=== PATIENT | female | born 1950 | race Caucasian/White ===

== ENCOUNTER → 2018-06-10 08:58 | Outpatient (CLI) | payer MEDICARE, SELFPAY ==
[2018-06-10 09:41] LABS: Alanine Aminotransferase 27 IU/L (9-52); Albumin 4.3 g/dL (3.5-5.0); Albumin Globulin Ratio 1.5 (1.0-2.8); Alkaline Phosphatase 41 U/L (38-126); Aspartate Aminotransferase 31 IU/L (14-36); Bilirubin Total 0.6 mg/dL (0.2-1.3); Blood Urea Nitrogen 15 mg/dL (7-17); Calcium 9.4 mg/dL (8.4-10.2); Carbon Dioxide 28 mmol/L (22-32); Chloride 103 mmol/L (98-107); Estimated Glomerular Filt Rate > 60.0 mL/min (>60); Globulin 2.9 g/dL (1.7-4.1); Glucose 94 mg/dL (80-110); HEMOLYSIS < 15 (0-50); Potassium 4.3 mmol/L (3.4-5.1); Sodium 138 mmol/L (137-145); Total Protein 7.2 g/dL (6.3-8.2)
== END ==
DX: Z13.228 Encounter for screening for other metabolic disorders (principal)
CPT/HCPCS: 36415; 80053

== ENCOUNTER → 2019-06-17 08:57 | Outpatient (CLI) | payer OTHER, SELFPAY ==
[2019-06-17 10:22] LABS: Alanine Aminotransferase 18 IU/L (<35); Albumin 4.3 g/dL (3.5-5.0); Albumin Globulin Ratio 1.3 (1.0-2.8); Alkaline Phosphatase 47 U/L (38-126); Aspartate Aminotransferase 35 IU/L (14-36); BUN Creatinine Ratio 23.3 (6-22); Bilirubin Total 0.6 mg/dL (0.2-1.3); Blood Urea Nitrogen 14 mg/dL (7-17); Calcium 9.7 mg/dL (8.4-10.2); Carbon Dioxide 27 mmol/L (22-32); Chloride 102 mmol/L (98-107); Estimated Glomerular Filt Rate > 60.0 mL/min (>60); Globulin 3.3 g/dL (1.7-4.1); Glucose 94 mg/dL (80-110); HEMOLYSIS < 15 (0-50); Potassium 4.3 mmol/L (3.4-5.1); Sodium 139 mmol/L (137-145); Total Protein 7.6 g/dL (6.3-8.2)
[2019-06-17 10:40] LABS: Vitamin D 25 Hydroxy (D3) 37.3 ng/mL (30.0-100.0)
== END ==
PROVIDERS: PCP Internal Medicine
DX: Z13.228 Encounter for screening for other metabolic disorders (principal)
CPT/HCPCS: 36415; 80053; 82306

== ENCOUNTER → 2019-06-29 10:01 | Outpatient (CLI) | payer OTHER, SELFPAY ==
--- NOTE | 2019-06-29 | DI.RAD.S_ITS ---
PROCEDURE: XR HAND RT 2V INDICATIONS: PRIMARY OSTEOARTHRITIS TECHNIQUE: 3 views of the hand(s) bilaterally were acquired. COMPARISON: [facility], CR, XR HAND LT 2V, 06/29/2019, 10:04. [facility], CR, HAND 3V LEFT, 09/07/2013, 12:15. FINDINGS: Bones: No fractures or dislocations. There is mild to moderate degenerative osteoarthritic joint space narrowing best seen at the distal interphalangeal joints with the right hand. No periarticular erosions are associated. Carpal bones are normally aligned. No suspicious bony lesions. Soft tissues: No suspicious soft tissue calcifications. IMPRESSION: Mild to moderate osteoarthritis, no sign of erosive/inflammatory arthritis. No recent trauma. Dictated by: Piyush Gill M.D. on 06/29/2019 at 10:52 Approved by: Piyush Gill M.D. on 06/29/2019 at 10:53
--- NOTE | 2019-06-29 | DI.RAD.S_ITS ---
PROCEDURE: XR HAND LT 2V INDICATIONS: PRIMARY OSTEOARTHRITIS TECHNIQUE: 3 views of the left hand acquired. COMPARISON: [facility], FABY, XR HAND RT 2V, 06/29/2019, 10:02. [facility], FABY, HAND 3V LEFT, 09/07/2013, 12:15. FINDINGS: Bones: No fractures or dislocations. Carpal bones are normally aligned. No suspicious bony lesions. Soft tissues: No suspicious soft tissue calcifications. IMPRESSION: Left hand degenerative osteoarthritis at the distal phalangeal joints. No recent trauma or erosive arthritis is found. Dictated by: Piyush Gill M.D. on 06/29/2019 at 10:55 Approved by: Piyush Gill M.D. on 06/29/2019 at 10:56
== END ==
PROVIDERS: PCP Internal Medicine; Referring Provider Internal Medicine; Visit Provider Internal Medicine
DX: M19.041 Primary osteoarthritis, right hand (principal); M19.042 Primary osteoarthritis, left hand
CPT/HCPCS: 73120

== ENCOUNTER → 2019-11-09 09:38 | Outpatient (CLI) | payer OTHER, SELFPAY ==
[2019-11-11 04:08] LABS: COVID19 Sendout Not Detected (Not Detected)
== END ==
PROVIDERS: PCP Internal Medicine; Visit Provider Physician Assistant
DX: Z03.818 Encounter for observation for suspected exposure to other biological agents ruled out (principal)
CPT/HCPCS: 87635

== ENCOUNTER → 2020-09-05 19:29 | Outpatient (ROUT) | payer OTHER, SELFPAY ==
[2020-09-05 20:11] LABS: Add Manual Diff / Slide Review NO; Basophils Absolute Auto 0 /uL (0-100); Basophils Percent Auto 0.9 % (0-2); Eosinophils Absolute Auto 100 /uL (0-450); Eosinophils Percent Auto 1.1 % (2-4); Hematocrit 42.4 % (36-46); Lymphocytes Absolute Auto 1200 /uL (1100-4500); Lymphocytes Percent Auto 21.5 % (25-40); Mean Corpuscular Hemoglobin 30.3 PG (26-34); Mean Corpuscular Volume 91.7 fL (80-100); Monocytes Absolute Auto 400 /uL (0-900); Monocytes Percent Auto 7.5 % (3-14); Neutrophils Absolute Auto 3800 /uL (1500-7000); Platelet Count 206 X10^3/uL (150-400); Red Blood Cell Count 4.63 X10^6/uL (4.0-5.2); Red Cell Distribution Width 12.6 % (11.6-14.8); White Blood Cell Count 5.6 X10^3/uL (4.5-11.0)
[2020-09-05 20:19] LABS: Alanine Aminotransferase 20 IU/L (<35); Albumin 4.1 g/dL (3.5-5.0); Albumin Globulin Ratio 1.4 (1.0-2.8); Alkaline Phosphatase 47 U/L (38-126); Aspartate Aminotransferase 38 IU/L (14-36); BUN Creatinine Ratio 22.7 (6-22); Bilirubin Total 0.4 mg/dL (0.2-1.3); Blood Urea Nitrogen 15 mg/dL (7-17); C-Reactive Protein Quant < 0.5 mg/dL (<1.0); Carbon Dioxide 26 mmol/L (22-32); Chloride 103 mmol/L (98-107); Estimated Glomerular Filt Rate > 60.0 mL/min (>60); Glucose 89 mg/dL (80-110); HEMOLYSIS 17 (0-50); Potassium 4.3 mmol/L (3.4-5.1); Sodium 137 mmol/L (137-145); Total Protein 7.1 g/dL (6.3-8.2)
[2020-09-05 20:25] LABS: Rheumatoid Factor < 8.6 IU/mL (<12.0)
[2020-09-09 13:13] LABS: ANA Screen, IFA Negative (.)
== END ==
PROVIDERS: PCP Internal Medicine; Visit Provider Internal Medicine
DX: M25.541 Pain in joints of right hand (principal); M25.542 Pain in joints of left hand
CPT/HCPCS: 80053; 85025; 86038; 86140; 86430

== ENCOUNTER → 2022-02-27 10:52 | Outpatient (CLI) | payer OTHER, SELFPAY ==
--- NOTE | 2022-02-27 | DI.MRI.S_ITS ---
PROCEDURE: MR BRAIN (IAC) WWO CON INDICATIONS: sensorineural hearing loss, bilateral TECHNIQUE: Noncontrast sagittal T1 spin echo, axial FLAIR, axial gradient echo, axial diffusion and ADC through the brain. Axial thin-slice 3D CISS, coronal TruFISP, axial T1 spin echo with fat saturation through the internal auditory canals. After the administration of contrast, thin slice axial and coronal T1 spin echo with fat saturation through the internal auditory canals, and axial and coronal and sagittal T1 spin echo with fat saturation through the brain. COMPARISON: None. FINDINGS: Image quality: Excellent. Cerebellopontine angles: No cerebellopontine angle masses. Inner ear structures appear normally formed. No suspicious enhancement in the internal auditory canal or along the course of the 7th cranial nerve. CSF spaces: Ventricles are normal in size and shape. No extra-axial fluid collections. Basal cisterns are patent. Brain: Moderate chronic microvascular ischemic changes and mild global cerebral volume loss. No restricted diffusion. No findings of vasogenic edema, mass effect, or midline shift. No unexpected intracranial susceptibility. No abnormal intracranial enhancement. Skull and face: Calvarial marrow signal is normal. Orbits appear normal. Sinuses: Sinuses and mastoids are clear. IMPRESSION: No finding to explain hearing loss. Moderate global cerebral volume loss and chronic microvascular ischemic changes. Dictated by: Ezra Valle M.D. on 02/27/2022 at 13:48 Approved by: Ezra Valle M.D. on 02/27/2022 at 13:50
== END ==
PROVIDERS: PCP Internal Medicine; Referring Provider Student in an Organized Health Care Education/Training Program; Visit Provider Student in an Organized Health Care Education/Training Program
DX: H90.3 Sensorineural hearing loss, bilateral (principal)
CPT/HCPCS: 70553

== ENCOUNTER → 2022-07-31 13:57 | Outpatient (CLI) | payer OTHER, SELFPAY ==
--- NOTE | 2022-07-31 | DI.ECHO.S_ITS ---
[facility]---------+ [facility] +---------+ : : [address] : : : : [id number] : : : : Phone: [phone]+ Echocardiogram Report + + :Name: ROBERT SAMAYOA Study Date: 07/31/2022 Height: 68.5 in: :[facility] ReadingLocation: Weight: 140 lb : : Gender: Female BSA: 1.8 m2 : :: 1950 Age: 71 yrs BP: 126/83 mmHg: :Reason For Study: DYSPNEA : :Ordering Physician: DRE, : :CHIKA Performed By: Claire Dominguez : :Referring: CHIKA CANA[place] : + + Interpretation Summary 1) Normal left ventricular thickness, size, wall motion, and systolic function (EF 55-60%). 2) Normal right ventricular size and function. 3) No significant valvular abnormalities. 4) No prior Echo available for comparison. Procedure: A two-dimensional transthoracic echocardiogram with color flow and Doppler was performed. The study quality was technically adequate. There is no prior echocardiogram noted for this patient. The patient had frequent PACs during the exam. The heart rate ranged between 58-67 bpm during the study. Left Ventricle: The left ventricle is normal in size and wall thickness. The ejection fraction is estimated to be 55-60%. Left ventricular systolic function appears normal without focal wall motion abnormalities. Diastolic parameters suggest a relaxation abnormality of the left ventricle, consistent with probable normal filling pressures. Right Ventricle: The right ventricle is normal in size and function. Atria: The left atrium is moderately dilated. Right atrial size is normal. There is no Doppler evidence for an interatrial shunt. Mitral Valve: The mitral valve is normal in structure and function. There is trace mitral regurgitation. Aortic Valve: The aortic valve is trileaflet. The aortic valve opens well. There is no aortic valve stenosis. No aortic regurgitation is present. Tricuspid Valve: The tricuspid valve is normal in structure and function. There is mild tricuspid regurgitation. The right ventricular systolic pressure is estimated to be at least 30 mmHg based on an estimated right atrial pressure of 3 mm Hg. Pulmonic Valve: The pulmonic valve leaflets are thin and pliable; valve motion is normal. There is no pulmonic valvular regurgitation. Great Vessels: The aortic root is normal size. The dimensions of the ascending aorta are normal. The IVC is of normal diameter and collapses greater than 50% with a sniff. This suggests a low right atrial pressure of 3 mm Hg. Pericardium/ Pleura There is no pericardial effusion. There is no pleural effusion. MMode/2D Measurements & Calculations LVIDd: 4.8 cm LVOT diam: 2.1 cm LVIDs: 3.0 cm Ao root diam: 3.1 cm FS: 37.0 % asc Aorta Diam: 3.2 cm EPSS: 0.63 cm Ao Arch Diam (Prox Trans): 2.5 cm IVSd: 0.58 cm LVPWd: 0.67 cm LV colorado. diameter/BSA (cm/m^2): 2.7 LV sys. diameter/BSA (cm/m^2): 1.7 LA A2 area: 22.3 cm2 RA long axis: 4.2 cm LA A4 area: 22.1 cm2 RA area: 13.1 cm2 LA length (vol): 5.9 cm RA vol: 34.8 ml LA vol: 71.2 ml RA : 19.7 ml/m2 LA vol index: 40.3 ml/m2 IVC diam: 1.6 cm RVD1 (basal): 3.3 cm RVD2 (mid): 2.6 cm TAPSE: 2.3 cm Doppler Measurements & Calculations Ao V2 max: 99.0 cm/sec LVOT Max Desmond: 97.2 cm/sec Ao V2 mean: 65.4 cm/sec LV V1 max P.8 mmHg Ao max P.9 mmHg LV V1 VTI: 20.7 cm Ao mean P.0 mmHg SAAD(I,D): 3.1 cm2 Ao V2 VTI: 22.1 cm SAAD(V,D): 3.3 cm2 sev ratio: 0.93 SAAD indexed to BSA (cm^2/m^2): 1.8 MV E max desmond: 90.5 cm/sec TR max desmond: 258.8 cm/sec MV A max desmond: 81.9 cm/sec TR max P.8 mmHg MV E/A: 1.1 PA V2 max: 71.6 cm/sec Med Peak E' Desmond: 8.5 cm/sec PA V2 mean: 51.8 cm/sec E/E' med: 10.7 PA mean P.2 mmHg Lat Peak E' Desmond: 6.5 cm/sec PA pr(Accel): 27.6 mmHg E/E' lat: 13.9 E/e' average: 12.3 MV dec time: 0.22 sec SVLVOT): 68.8 ml Reading Physician:04:56 PM
--- NOTE | 2022-08-01 02:12 | DI.NM.S_ITS ---
DATE OF SERVICE: 07/31/2022 PROCEDURE: Exercise stress test. INDICATIONS: Shortness of breath. CARDIAC STRESS: Patient underwent exercise stress test under the supervision of an attending staff. The patient walked on Davide protocol for 6 minutes and 01 second, achieved maximum heart rate of 128, which was 86% of target heart rate. Resting blood pressure 144/76 and peak blood pressure 156/80 mmHg. Baseline rhythm was sinus with frequent PACs including atrial bigeminy pattern, which got suppressed during peak exercise, and reappeared in recovery. Occasional PVCs seen in the recovery. No ischemic EKG changes seen. No chest pain or anginal symptoms. The patient felt dizziness at peak exercise. JEFF -7%. Achieved 7 METS of workload. CONCLUSION: 1. Exercise stress test is negative for inducible ischemia. 2. Normal hemodynamic response. 3. Fair exercise tolerance. Functional aerobic impairment -7%. 4. No anginal symptoms. The patient felt dizzy. Baseline premature atrial contractions, which got suppressed during exercise and reappeared in recovery without any obvious atrial fibrillation. Some isolated premature ventricular contractions in recovery without any ventricular tachycardia. Overall, low-risk exercise stress test. Stefani Leavitt - HARVEY/shabbir/eron doc#: [id number]/job#: [id number] dd: 07/31/2022 16:58:00 dt: 08/01/2022 01:58:00 DICTATING /COPIES TO: Nathan Nguyen MD COPIES MNE: DESIRAE;
== END ==
PROVIDERS: PCP Internal Medicine; Referring Provider Internal Medicine Cardiovascular Disease; Visit Provider Internal Medicine Cardiovascular Disease
DX: I49.1 Atrial premature depolarization (principal); R06.09 Other forms of dyspnea; I07.1 Rheumatic tricuspid insufficiency; R06.02 Shortness of breath
CPT/HCPCS: 93017; 93306

== ENCOUNTER → 2022-09-10 09:54 | Outpatient (CLI) | payer OTHER, SELFPAY ==
[2022-09-10 11:49] LABS: Cholesterol 156 mg/dL (140-199); HDL Cholesterol 59 mg/dL (40-60); LDL Cholesterol Calculated 84 mg/dL (<100); Triglycerides 65 mg/dL (35-150)
== END ==
PROVIDERS: PCP Internal Medicine; Referring Provider Internal Medicine Cardiovascular Disease; Visit Provider Internal Medicine Cardiovascular Disease
DX: E78.5 Hyperlipidemia, unspecified (principal)
CPT/HCPCS: 36415; 80061

== ENCOUNTER → 2023-02-14 09:12 | Outpatient (CLI) | payer OTHER, SELFPAY ==
--- NOTE | 2023-02-14 | DI.CT.S_ITS ---
PROCEDURE: CT CHEST W CON INDICATIONS: Chronic cough TECHNIQUE: After the administration of intravenous contrast, 5 mm thick sections acquired from the pulmonary apices to the posterior costophrenic angles. 1 mm axial lung, 5 mm thick coronal and sagittal reformats and 7 mm axial MIP were acquired. For radiation dose reduction, the following was used: automated exposure control, adjustment of mA and/or kV according to patient size. COMPARISON: None. FINDINGS: Image quality: Excellent. Lungs and pleura: Tree-in-bud nodular opacity at the right lower lobe, (3/228). Scattered areas of distal mucus airway plugging. Secretions in the upper trachea. Mild bronchiectasis. A few areas of scattered bronchial wall thickening. No consolidation. No pleural effusions or pneumothorax. Mediastinum: Heart size is normal. No pericardial effusion. No mediastinal or hilar adenopathy by size criteria. Thoracic aorta and central pulmonary arteries are normal in size. Esophagus is normal in caliber. No significant hiatal hernia. Bones and chest wall: No suspicious bony lesions. T9 intraosseous hemangioma. No vertebral body compression fractures. No axillary or supraclavicular adenopathy by size criteria. Thyroid gland is within normal limits. Abdomen: Multiple hepatic cysts. Calcification in the right lobe of the liver. IMPRESSION: 1. Mild tree-in-bud nodular opacity in the right lower lobe. Scattered areas of bronchial wall thickening and distal mucus airway plugging. Secretions in the upper trachea. Findings most consistent with bronchitis. 2. No mass. No adenopathy. No pleural effusion. Dictated by: Veto Machado M.D. on 02/14/2023 at 19:55 Approved by: Veto Machado M.D. on 02/14/2023 at 20:02
== END ==
PROVIDERS: PCP Internal Medicine; Referring Provider Internal Medicine; Visit Provider Internal Medicine
DX: R05.3 Chronic cough (principal); R06.09 Other forms of dyspnea; R91.8 Other nonspecific abnormal finding of lung field
CPT/HCPCS: 71260

== ENCOUNTER 2024-02-14 10:11 | Emergency (ER) | payer OTHER, SELFPAY ==
[2024-02-14 10:22] VITALS: BP 142/66; PULSE 66; RESP 18; TEMP 36.1; O2SAT 99; BMI 21.2
--- NOTE | 2024-02-14 10:28 | PC.NURSE ---
Ice pack given to pt and applied to affected wrist
--- NOTE | 2024-02-14 10:32 | DI.RAD.S_ITS ---
PROCEDURE: XR WRIST LT MIN 3V INDICATIONS: fall TECHNIQUE: 3 views of the wrist were acquired. COMPARISON: None. FINDINGS: Bones: No fractures or dislocations. No suspicious bony lesions. Arthritic changes 1st CMC. Old ulnar styloid avulsion fracture Soft tissues: No suspicious soft tissue calcifications. IMPRESSION: No acute fracture or dislocation. Arthritic changes and old ulnar styloid avulsion fracture Approved by: Eren Daniels M.D. on 02/14/2024 at 9:53
--- NOTE | 2024-02-14 10:36 | DI.CT.S_ITS ---
PROCEDURE: CT CERVICAL SPINE WO CON INDICATIONS: fall TECHNIQUE: Noncontrast 3 mm thick sections acquired from the skull base to the T4 level. Sagittal and coronal reformats were then constructed. For radiation dose reduction, the following was used: automated exposure control, adjustment of mA and/or kV according to patient size. COMPARISON: None. FINDINGS: Image quality: Excellent. Bones: No fractures or dislocations. Visualized superior ribs are intact. Disc disease and uncovertebral arthropathy in the mid cervical spine Soft tissues: Prevertebral soft tissues are normal in thickness. No paravertebral hematomas. No apical pneumothoraces. IMPRESSION: No evidence of fracture or traumatic malalignment. Mild degenerative changes Approved by: Eren Daniels M.D. on 02/14/2024 at 10:30
--- NOTE | 2024-02-14 10:37 | DI.CT.S_ITS ---
PROCEDURE: CT HEAD/BRAIN WO CON INDICATIONS: fall TECHNIQUE: Noncontrast 4.5 mm thick angled axial sections acquired from the foramen magnum to the vertex, with coronal and sagittal reformats. For radiation dose reduction, the following was used: automated exposure control, adjustment of mA and/or kV according to patient size. COMPARISON: None. FINDINGS: Image quality: Diagnostic. CSF spaces: Basal cisterns are patent. No extra-axial fluid collections. Ventricles are normal in size and shape. Brain: No midline shift. No intracranial masses or hemorrhage. Rutherford-white matter interface is normal. Skull and face: Calvarium and visualized facial bones are intact, without suspicious lesions. Sinuses: Visualized sinuses and mastoids are clear. IMPRESSION: No acute intracranial pathology. Approved by: Eren Daniels M.D. on 02/14/2024 at 10:04
--- NOTE | 2024-02-14 11:52 | ED.FALL ---
HPI - Fall <Luis Armando Sifuentes PA-C - Last Filed: 02/14/24 12:05> General Chief Complaint: Fall Stated Complaint: fall hit head/left wrist Time Seen by Provider: 02/14/24 11:12 Source: patient Mode of arrival: Family Vehicle History of Present Illness HPI Narrative: This patient is a 73-year-old female that apparently sustained a mechanical trip and fall striking the left side of her head and left wrist. Patient is concerned about a possible wrist fracture. She states that she has not on any type of blood thinners at this time. Patient denies any LOC/AMS, chest pain, shortness of breath, abdominal pain, blurred vision or headache at this time. No treatments have been tried for today's chief complaint. The fall occurred earlier this morning. The patient did not sustain any type of laceration to the scalp and there is no obvious head trauma on exam. Related Data Home Medications Medication Instructions Recorded Confirmed Lutein (#LUTEIN) 20 mg PO QDAY ##0 12/06/10 [HAWTHIRNE EXTRACT] 300 mg PO QDAY ##0 12/06/10 [VITAMIN D] 2,000 mg PO QDAY ##0 12/06/10 estradiol 0.5 mg tablet ##0 09/04/16 Previous Rx's Medication Instructions Recorded zoster vaccine live (PF) 19,400 0.5 ml SQ SEE INSTRUCTIONS #1 dose 09/04/16 unit/0.65 mL subcutaneous suspension (Zostavax (PF)) triamcinolone acetonide 0.1 % 1 applictn topical DAILY #15 grams 01/26/18 topical cream Allergies Allergy/AdvReac Type Severity Reaction Status Date / Time BEE STING Allergy Severe Nausea Uncoded 02/14/24 10:31 Codeine AdvReac Unknown Uncoded 02/14/24 10:31 Review of Systems <Luis Armando Sifuentes PA-C - Last Filed: 02/14/24 12:05> Review of Systems Narrative: General: See HPI HEENT: See HPI MSK: See HPI All other review of systems have been reviewed and are ultimately negative unless otherwise stated in the HPI Patient History <Luis Armando Sifuentes PA-C - Last Filed: 02/14/24 12:05> Surgical History History of gynecologic surgery History of colonoscopy (06/22/07) Status post surgery (01/01/11) Family History Mother Osteoporosis Social History Smoking Status: Former smoker Smoking Status: Former smoker tobacco type: cigarettes alcohol intake frequency: 0-2 drinks per day Substance Use Type: marijuana Exam <Luis Armando Sifuentes PA-C - Last Filed: 02/14/24 12:05> Initial Vital Signs Initial Vital Signs: Vital Signs Temperature 97 F L 02/14/24 10:22 Pulse Rate 66 02/14/24 10:22 Respiratory Rate 18 02/14/24 10:22 Blood Pressure 142/66 H 02/14/24 10:22 Pulse Oximetry 99 02/14/24 10:22 Oxygen Delivery Method Room Air 02/14/24 10:22 Const General: cooperative, healthy appearing, comfortable, well developed and well groomed [facility] Head: normal to inspection and normocephalic Ears: hearing grossly normal bilaterally, external ears normal, TM's normal bilaterally and EAC's normal Eyes General: Yes appearance normal, both eyes and all related structures Neck Neck: normal visual inspection, full ROM, no meningeal signs, trachea midline and supple Resp Effort & Inspection: normal respiratory effort and able to speak in complete sentences Auscultation: clear to auscultation bilaterally Cardio Rate: regular rate Rhythm: regular rhythm Heart Sounds: S1 normal and S2 normal Back/Spine/Pelvis Back: normal to inspection Skin General: no rashes or lesions noted, elasticity normal and turgor normal Neuro General: patient alert, patient awake, patient oriented x3, gait normal, moves all extremities and CN's II-XI intact bilaterally Extrem Other: Patient has full range of motion of all extremities including the left upper extremity and wrist. Left wrist and hand reveal neurovascular status intact distally with capillary refill less than 2 seconds. All digits of the left hand reveals full range of motion. There is minimal soft tissue swelling noted on exam. Psych Appearance: grossly normal and well kempt <Ping Gonzalez DO - Last Filed: 02/15/24 07:12> Initial Vital Signs Initial Vital Signs: Vital Signs Temperature 97 F L 02/14/24 10:22 Pulse Rate 66 02/14/24 10:22 Respiratory Rate 18 02/14/24 10:22 Blood Pressure 142/66 H 02/14/24 10:22 Pulse Oximetry 99 02/14/24 10:22 Oxygen Delivery Method Room Air 02/14/24 10:22 Course <RAMSEY Rodrigues Last Filed: 02/14/24 12:05> Course Course Narrative: Patient was seen and examined. A CT scan of the head and cervical spine were ordered as well as a three-view left wrist x-ray series. According to the radiologist, the left wrist x-ray series reveals no acute fracture or abnormality. CT scan of the head and cervical spine reveal no evidence of a skull fracture, intracranial bleed or cervical fracture and these were normal studies as well, according to the radiologist. Patient was notified of the negative findings. She was fitted for a velcro wrist splint which was applied by nursing staff under my direct supervision. Neurovascular status remained intact pre and post splint application. Patient tolerated the procedure well. She was then prepped for discharge home. Orders Ordered: ED Orders 02/14/24 10:32 XR wrist LT min 3V Stat 02/14/24 10:36 CT cervical spine wo con Stat 02/14/24 10:37 CT head/brain wo con Stat Vital Signs Vital signs: Vital Signs - 8 hr 02/14/24 10:22 Temperature 97 F L Pulse Rate 66 Respiratory Rate 18 Blood Pressure 142/66 H Pulse Oximetry 99 Oxygen Delivery Method Room Air <Ping Gonzalez DO - Last Filed: 02/15/24 07:12> Orders Ordered: ED Orders 02/14/24 10:32 XR wrist LT min 3V Stat 02/14/24 10:36 CT cervical spine wo con Stat 02/14/24 10:37 CT head/brain wo con Stat Vital Signs Vital signs: Vital Signs - 8 hr 02/14/24 10:22 Temperature 97 F L Pulse Rate 66 Respiratory Rate 18 Blood Pressure 142/66 H Pulse Oximetry 99 Oxygen Delivery Method Room Air MDM - Fall <Luis Armando Sifuentes PA-C - Last Filed: 02/14/24 12:05> Differential Diagnosis Differential diagnosis: Likely other (Cervical fracture, cervical strain, scalp contusion, skull fracture, intracranial hemorrhage, wrist fracture, wrist sprain, neurovascular injury, fall as well as others) Medical Records Attestation: I reviewed the patient's medical records. Imaging Data See above: Radiologist's Impression: No acute fracture noted on the left wrist x-ray series. No evidence of skull fracture intracranial hemorrhage of the CT of the head and negative study of the CT C-spine MDM Narrative Medical decision making narrative: See above Discharge Plan Departure Patient Disposition: Home Clinical Impression: Fall Qualifiers: Encounter type: initial encounter Qualified Code(s): W19.XXXA - Unspecified fall, initial encounter Scalp contusion Qualifiers: Encounter type: initial encounter Qualified Code(s): S00.03XA - Contusion of scalp, initial encounter Left wrist sprain Qualifiers: Encounter type: initial encounter Qualified Code(s): S63.502A - Unspecified sprain of left wrist, initial encounter Instructions: DI for Wrist Sprain, How to Prevent Falls Activity Restrictions/Additional Instructions: Use the Velcro wrist splint as needed Consider Tylenol every 8 hours as needed Continue icing today 10 minutes at a time 5 times today Consider using heat application starting tomorrow Follow up with your PCP next week as a recheck as you may require physical therapy for your wrist if your pain does not completely resolve Return here for any new, emergent concerns or if you worsen in any way Prescriptions: No Action [VITAMIN D] 2,000 mg PO QDAY Qty: 0 Lutein (#LUTEIN) 20 mg PO QDAY Qty: 0 [HAWTHIRNE EXTRACT] 300 mg PO QDAY Qty: 0 estradiol 0.5 MG tablet Qty: 0 zoster vaccine live (PF) [Zostavax (PF)] 19,400 UNIT/0.65 ML suspension for reconstitution 0.5 ml SQ SEE INSTRUCTIONS Qty: 1 0RF triamcinolone acetonide 0.1 % cream 1 applictn TOP DAILY Qty: 15 0RF Referrals: Aster Cochran MD [Primary Care Provider] - Stand Alone Forms: Patient Portal/API ED Sign-out <Ping Gonzalez DO - Last Filed: 02/15/24 07:12> Cosign ED Attending Cosignature Attestation: I was available for consultation.
== END 2024-02-14 12:24 | disposition home or self-care (01) ==
PROVIDERS: Emergency Provider Physician Assistant; PCP Internal Medicine
DX: S00.03XA Contusion of scalp, initial encounter (principal); S63.502A Unspecified sprain of left wrist, initial encounter; W18.30XA Fall on same level, unspecified, initial encounter
CPT/HCPCS: 70450; 72125; 73110; 99282; 99284